=== PATIENT | male | born 1950 | race Caucasian/White ===

== ENCOUNTER 2016-09-25 05:00 | Day surgery (SDC) | payer MEDICARE, OTHER ==
[2016-09-23 18:25] LABS: BASOPHILS 0.3 %; BASOPHILS ABSOLUTE 0.02 10/3/uL (0.0-0.16); EOSINOPHILS 1.3 %; HEMATOCRIT 42.5 % (40.0-51.0); HEMOGLOBIN 14.5 g/dL (13.6-17.8); IMMATURE GRANULOCYTES 0.5 %; IMMATURE GRANULOCYTES ABSOLUTE 0.04 10/3/uL (0.0-0.11); LYMPHOCYTES 29.8 %; LYMPHOCYTES ABSOLUTE 2.28 10/3/uL (0.67-4.30); MANUAL DIFF NO %; MEAN CORPUS HGB CONC 34.1 g/dL (32.0-36.0); MEAN CORPUSCULAR VOLUME 93.8 fL (80-100); MEAN PLATELET VOLUME 11.6 fL (9.2-13.0); MONOCYTES ABSOLUTE 0.54 10/3/uL (0.21-1.20); NEUTROPHILS 61.1 %; NEUTROPHILS ABSOLUTE 4.68 10/3/uL (2.02-8.40); PLATELET COUNT 195 10/3/uL (150-400); RBC DISTRIBUTION WIDTH 13.7 % (12.0-16.0); RED CELL COUNT 4.53 10/6/uL (4.7-6.1); WHITE BLOOD CELLS 7.7 10/3/uL (4.5-10.5)
[2016-09-23 19:10] LABS: A/G RATIO 1.6 (0.7-1.9); ALBUMIN 4.1 G/DL (3.5-5.0); ALKALINE PHOSPHATASE 55 U/L (45-117); BUN (BLOOD UREA NITROGEN) 15 MG/DL (6-23); CHLORIDE, SERUM 107 MMOL/L (96-112); CO2 (CARBON DIOXIDE) 28 MMOL/L (24-34); CREATININE 0.89 MG/DL (0.70-1.30); GFR AFRICAN AMERICAN 104 ML/MIN (>=60); GFR NON AFRICAN AMERICAN 90 ML/MIN (>=60); GLOBULIN 2.5 G/DL (2.5-4.1); POTASSIUM, SERUM 3.9 MMOL/L (3.5-5.3); SGOT(AST) 23 U/L (5-40); SGPT(ALT) 34 U/L (5-65); SODIUM, SERUM 143 MMOL/L (135-148); TOTAL BILIRUBIN 0.9 MG/DL (0-1.2); TOTAL PROTEIN 6.6 G/DL (6.0-8.5)
[2016-09-23 19:11] LABS: GLUCOSE, SERUM 93 MG/DL (60-99)
--- NOTE | ~2016-09-25 | OP ---
Record Of Operation [facility] [address] [place]. [address] NAME: GIUSEPPE DORSEY : 52 STATUS : [facility]#: [id number] AGE: 66 ADM/REG DATE : 09/25/16 MR#: [id number] REPORT SERV DATE: 09/26/16 DICTATED BY: JORDAN MASCORRO DATE: 09/26/16 REPORT STATUS : Draft TRANSCRIBED BY: JAYESH DATE: 09/26/16 DATE OF PROCEDURE: 09/25/2016 PREOPERATIVE DIAGNOSIS: Multiple subcutaneous masses consistent with lipomas. POSTOPERATIVE DIAGNOSIS: Multiple subcutaneous masses consistent with lipomas. PROCEDURE PERFORMED: 1. Excision of 7 subcutaneous masses of the left upper extremity, each less than 3 cm. 2. Excision of 3 subcutaneous masses of the right upper extremity, measuring less than 3 cm each. 3. Excision of 1 subcutaneous mass of the back, measuring greater than 3 cm. 4. Excision of 7 subcutaneous masses of the abdomen and trunk, measuring less than 3 cm. SURGEON: Jordan Mascorro M.D. ANESTHESIA: General. ESTIMATED BLOOD LOSS: 20 mL. SPECIMENS REMOVED: Multiple subcutaneous masses, grossly resembling lipomas. BRIEF HISTORY: Mr. Dorsey is a 66-year-old gentleman, who presents with numerous subcutaneous nodules all over his body. Some on his arms, back, and abdomen are tender and growing, and he wishes to have these excised and presents for this purpose. FINDINGS: All the lesions removed grossly appeared to be benign lipomas. DETAILS: After informed consent was obtained, all the areas of concern were identified by the patient and marked by himself and confirmed by myself as being the proper lipomas to be excised. He also had lipomas on his legs and lower abdomen, which he did not wish to have excised as they were not symptomatic. All the lipomas were marked and confirmed and after confirmation with the patient and myself, he was transferred to the operative suite. After successful induction of general tracheal anesthesia, all areas on his arms and abdomen were prepped and draped in usual sterile fashion. Separate skin incisions were made over each palpable lipoma. Total of 7 were made on the abdomen, 7 on the left upper extremity, and 3 in the right upper extremity. All these resulted in delivery of subcutaneous masses that were grossly resembling lipomas. They were all excised in their gross entirety and each separate skin incision was approximated using 3-0 Vicryl subdermals and Dermabond. Next, the patient was repositioned in a lateral decubitus position, and area on his back was then prepped and draped in usual sterile fashion. Incision was made overlying this palpable mass and again a well-encapsulated lipoma was removed. This wound grossly was just over 3 cm in aggregate total. It was excised in its gross entirety, and its skin edges were reapproximated using 3-0 Vicryl subdermals followed by 4-0 Monocryl subcuticular and Dermabond placed. At the completion of the case, all sponge and needle counts were correct. The patient was extubated and transferred to recovery room in satisfactory condition having Record Of Operation [address] [place]. [address] NAME: GIUSEPPE DORSEY : 52 STATUS : [facility] PAT#: [id number] AGE: 66 ADM/REG DATE : 09/25/16 MR#: [id number] REPORT SERV DATE: 09/26/16 DICTATED BY: JORDAN MASCORRO DATE: 09/26/16 REPORT STATUS : Draft TRANSCRIBED BY: JAYESH DATE: 09/26/16 suffered no apparent perioperative complications. SINDHU/JAYESH Jordan Mascorro M.D. / [id number] CC: Catrachita Figueredo Kathleen L
[~2016-09-25 05:00] MED LIST: *DENIES
== END 2016-09-25 14:42 | disposition home or self-care (01) ==
LOC: SDC 05:00
PROVIDERS: Surgery
PROC: 0JB80ZZ Excision of Abdomen Subcutaneous Tissue and Fascia, Open Approach (ICD-10-PCS; 2016-09-25)
PROC: 0XB Anatomical Regions, Upper Extremities, Excision (ICD-10-PCS; 2016-09-25)
PROC: 0XB Anatomical Regions, Upper Extremities, Excision (ICD-10-PCS; 2016-09-25)
PROC: 0JB70ZZ Excision of Back Subcutaneous Tissue and Fascia, Open Approach (ICD-10-PCS; principal; 2016-09-25 05:45)
DX: D17.21 Benign lipomatous neoplasm of skin and subcutaneous tissue of right arm (principal); D17.22 Benign lipomatous neoplasm of skin and subcutaneous tissue of left arm; D17.1 Benign lipomatous neoplasm of skin and subcutaneous tissue of trunk; Z98.890 Other specified postprocedural states; F17.290 Nicotine dependence, other tobacco product, uncomplicated
CPT/HCPCS: 80053; 85025; 88304; 93005; A9270-GY; J0360; J0690; J1885; J2250; J2710; J3010